=== PATIENT | male | born 1955 | race Caucasian/White ===

== ENCOUNTER 2022-04-19 13:33 | Outpatient (CLI) | payer MEDICARE, OTHER ==
[2022-04-19] MEDS ORDERED: Magnevist 469MG/ML 20 ML VIAL ONE (15:31)
== END 2022-04-19 13:34 | disposition home or self-care (01) ==
LOC: CSHMRI 13:33
PROVIDERS: ATTEND Neurological Surgery
DX: M47.12 Other spondylosis with myelopathy, cervical region (principal); M47.22 Other spondylosis with radiculopathy, cervical region; M54.16 Radiculopathy, lumbar region; M50.022 Cervical disc disorder at C5-C6 level with myelopathy; M48.02 Spinal stenosis, cervical region; M47.816 Spondylosis without myelopathy or radiculopathy, lumbar region; M48.061 Spinal stenosis, lumbar region without neurogenic claudication; G95.89 Other specified diseases of spinal cord; Z98.890 Other specified postprocedural states
CPT/HCPCS: 72156; 72158; 82565; A9579

== ENCOUNTER 2025-02-23 11:51 | Outpatient (CLI) | payer MEDICARE, OTHER | END 2025-02-23 11:52 | disposition home or self-care (01) | LOC: CSHRAD 11:51 | PROVIDERS: ATTEND Clinical Nurse Specialist Medical-Surgical | DX: M43.16 Spondylolisthesis, lumbar region (principal); M47.816 Spondylosis without myelopathy or radiculopathy, lumbar region | CPT/HCPCS: 72100 ==